=== PATIENT | male | born 1930 | race Caucasian/White ===

== ENCOUNTER 2016-12-11 19:30 | Emergency (ER) | payer MEDICARE, BC ==
--- NOTE | 2016-12-11 20:05 | EDM.PDOC ---
ED HPI GENERAL MEDICAL PROBLEM - General Chief Complaint: Syncope Stated Complaint: SYNCOPE Time Seen by Provider: 12/11/16 19:47 Source of Information: Reports: Patient History Limitations: Reports: No Limitations - History of Present Illness INITIAL COMMENTS - FREE TEXT/NARRATIVE: This patient is a pleasant 86 year old male that presents to the ER. Patient reports that he remembers being out in his garden. He reports he went out to his garden about 3pm today. Patient reports that he remembers being out there down on his knees and hands with a small garden shovel pulling weeds from his garden. He reports that he remembers laying down in the garden being awakened by rain. He reports that he felt like his arms and legs bilateral would not work. He reports crawling to his life alert that was on the ground across the garden. He reports hitting his life alert for help. The patient reports that he does not recall the time from pulling weeds until about now arriving to the ER. The patient has an uncounted time of about 4 hours. The patient denies millard, dizziness, n, v, d, f, soa, abd pain, urinary/bowel changes. The patient does report that about one week ago he fell down about 7 steps. The patient does report tonight right shoulder pain. Patient currently is alert and oriented. His stroke score is 0. 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 Denies: Confusion, Cough, cough w sputum, Diaphoresis, Fever/Chills, Headaches, Loss of Appetite, Malaise, Nausea/ Vomiting, Rash, Seizure, Shortness of Breath, Syncope, Weakness - Related Data Allergies Allergy/AdvReac Type Severity Reaction Status Date / Time No Known Allergies Allergy Verified 12/11/16 19:50 Home Meds: Home Meds Calcium Carb & Citrate/Vit D3 [Citracal + D ER] 1 each PO DAILY 12/11/16 [ History] Cholecalciferol (Vitamin D3) [Vitamin D3] 2,000 unit PO DAILY 12/11/16 [History] Cyanocobalamin (Vitamin B12) [Vitamin B12] 1,000 mcg PO DAILY 12/11/16 [History] Fish Oil/[place]-3 Fatty Acids [Fish Oil] 1 each PO BID 12/11/16 [History] Hydrochlorothiazide 12.5 mg PO DAILY 12/11/16 [History] Lisinopril 20 mg PO DAILY 12/11/16 [History] Metoprolol Tartrate 50 mg PO BID 12/11/16 [History] Multivitamin [Daily Multiple Vitamin] 1 tab PO DAILY 12/11/16 [History] Nitroglycerin 0.4 mg SL ASDIRECTED 12/11/16 [History] Simvastatin [Zocor] 10 mg PO DAILY 12/11/16 [History] ED ROS GENERAL - Review of Systems Review Of Systems: See Below Constitutional: Reports: Weakness (generalized) HEENT: Reports: No Symptoms Respiratory: Reports: No Symptoms Cardiovascular: Reports: Chest Pain, Syncope Endocrine: Reports: No Symptoms GI/Abdominal: Reports: No Symptoms : Reports: No Symptoms Musculoskeletal: Reports: Shoulder Pain (right shoulder) Skin: Reports: Bruising (right shoulder) Neurological: Reports: No Symptoms Psychiatric: Reports: No Symptoms Hematologic/Lymphatic: Reports: No Symptoms Immunologic: Reports: No Symptoms - Physical Exam Exam: See Below Exam Limited By: No Limitations General Appearance: Alert, WD/WN, No Apparent Distress Eye Exam: Bilateral Eye: EOMI, Normal Inspection, PERRL Ears: Normal External Exam, Normal Canal, Hearing Grossly Normal, Normal TMs Nose: Normal Inspection, Normal Mucosa, No Blood Throat/Mouth: Normal Inspection, Normal Lips, Normal Teeth, Normal Gums, Normal Oropharynx, Normal Voice, No Airway Compromise Head Exam: Atraumatic, Normocephalic Neck: Normal Inspection, Supple, Non-Tender, Full Range of Motion Respiratory/Chest: No Respiratory Distress, Lungs Clear, Normal Breath Sounds, No Accessory Muscle Use, Chest Non-Tender. No: Respiratory Distress, Accessory Muscle Use Cardiovascular: Normal Peripheral Pulses, Regular Rate, Rhythm, No Edema, No Gallop, No JVD, No Murmur, No Rub GI/Abdominal: Normal Bowel Sounds, Soft, Non-Tender, No Organomegaly, No Distention, No Abnormal Bruit, No Mass Neuro Exam (Abbreviated): Alert, Oriented, CN II-XII Intact, Normal Cognition, No Motor/Sensory Deficits Back Exam: Normal Inspection, Full Range of Motion. No: CVA Tenderness (L), CVA Tenderness (R), Decreased Range of Motion, Muscle Spasm, Paraspinal Tenderness, Vertebral Tenderness Extremities: Normal Capillary Refill, Other (Right shoulder pain, tenderness anterior/ ecchymosis. Motor function intact. ) Psychiatric: Normal Affect, Normal Mood Skin Exam: Warm, Dry, Normal Color, No Rash, Other (bilateral anterior knee abrasions. ) EKG INTERPRETATION EKG Date: 12/11/16 Time: 19:46 Rate (beats/min): 78 QRS: RBBB ST-T: normal Comparison: change from previous EKG (New RBB.) Course - Vital Signs Last Recorded V/S: Last Vital Signs Temp 97.7 F 12/11/16 21:38 Pulse 76 12/11/16 21:38 Resp 20 12/11/16 21:38 BP 101/64 12/11/16 21:38 Pulse Ox 95 12/11/16 21:38 - Orders/Labs/Meds Orders: Active Orders 24 hr Category Date Time Status Chest 2V [CR] Stat Exams 12/11/16 19:42 Taken Head wo Cont [CT] Stat Exams 12/11/16 19:42 Taken Shoulder Comp Rt [CR] Stat Exams 12/11/16 19:55 Taken Labs: Laboratory Tests 12/11/16 12/11/16 12/11/16 Range/Units 19:55 19:55 19:55 WBC 15.3 H (5.0-10.0) 10^3/uL RBC 4.21 L (4.50-6.00) 10^6/uL Hgb 13.1 L (14.0-18.0) g/dL Hct 38.2 L (40.0-54.0) % MCV 90.7 (82.0-94.0) fL MCH 31.1 (27.0-32.0) pg MCHC 34.3 (33.0-38.0) g/dL RDW Coeff of Matthew 14.0 (11.0-15.0) % Plt Count 175 (150-400) 10^3/uL Neut % (Auto) 85.9 H (35-85) % Lymph % (Auto) 6.5 L (10-55) % [place] % (Auto) 6.8 (0-16) % Eos % (Auto) 0.5 (0-5) % Baso % (Auto) 0.3 (0-3) % Neut # (Auto) 13.12 H (1.80-7.00) 10^3/uL Lymph # (Auto) 0.99 L (1.00-4.80) 10^3/uL [place] # (Auto) 1.04 H (0.00-0.80) 10^3/uL Eos # (Auto) 0.08 (0.00-0.45) 10^3/uL Baso # (Auto) 0.04 10^3/uL PT 10.7 (9.7-12.3) SEC INR 0.99 (0.92-1.18) APTT 22.8 L (24.5-30.9) SEC Sodium 144 (136-145) mEq/L Potassium 3.6 (3.5-5.0) mEq/L Chloride 105 (98-106) mEq/L Carbon Dioxide 26 (21-32) mmol/L BUN 29 H (7-18) mg/dL Creatinine 1.5 H (0.7-1.3) mg/dL Est Cr Clr Drug Dosing 33.05 mL/min Estimated GFR (MDRD) 44 L (>=60) mL/min Glucose 89 (75-99) mg/dL Calcium 8.6 (8.4-10.1) mg/dL Lactate Dehydrogenase 242 H (100-190) U/L Creatine Kinase 1013 H (35-232) U/L Troponin I 1.324 H (0.00-0.06) ng/mL Urine Color (YELLOW) Urine Appearance (CLEAR) Urine pH (4.5-8.0) Ur Specific Traer (1.003-1.020) Urine Protein (NEGATIVE) mg/dL Urine Glucose (UA) (NEGATIVE) mg/dL Urine Ketones (NEGATIVE) mg/dL Urine Occult Blood (NEGATIVE) Urine Nitrite (NEGATIVE) Urine Bilirubin (NEGATIVE) Urine Urobilinogen (0.2-1.0) EU/dL Ur Leukocyte Esterase (NEGATIVE) Urine RBC (0-5) /HPF Urine WBC (0-5) /HPF Ur Epithelial Cells (NOT SEEN) /HPF Hyaline Casts (NOT SEEN) /LPF Urine Mucus (NOT SEEN) /HPF 12/11/16 Range/Units 20:31 WBC (5.0-10.0) 10^3/uL RBC (4.50-6.00) 10^6/uL Hgb (14.0-18.0) g/dL Hct (40.0-54.0) % MCV (82.0-94.0) fL MCH (27.0-32.0) pg MCHC (33.0-38.0) g/dL RDW Coeff of Matthew (11.0-15.0) % Plt Count (150-400) 10^3/uL Neut % (Auto) (35-85) % Lymph % (Auto) (10-55) % [place] % (Auto) (0-16) % Eos % (Auto) (0-5) % Baso % (Auto) (0-3) % Neut # (Auto) (1.80-7.00) 10^3/uL Lymph # (Auto) (1.00-4.80) 10^3/uL [place] # (Auto) (0.00-0.80) 10^3/uL Eos # (Auto) (0.00-0.45) 10^3/uL Baso # (Auto) 10^3/uL PT (9.7-12.3) SEC INR (0.92-1.18) APTT (24.5-30.9) SEC Sodium (136-145) mEq/L Potassium (3.5-5.0) mEq/L Chloride (98-106) mEq/L Carbon Dioxide (21-32) mmol/L BUN (7-18) mg/dL Creatinine (0.7-1.3) mg/dL Est Cr Clr Drug Dosing mL/min Estimated GFR (MDRD) (>=60) mL/min Glucose (75-99) mg/dL Calcium (8.4-10.1) mg/dL Lactate Dehydrogenase (100-190) U/L Creatine Kinase (35-232) U/L Troponin I (0.00-0.06) ng/mL Urine Color Yellow (YELLOW) Urine Appearance Clear (CLEAR) Urine pH 5.5 (4.5-8.0) Ur Specific Traer 1.010 (1.003-1.020) Urine Protein Negative (NEGATIVE) mg/dL Urine Glucose (UA) Negative (NEGATIVE) mg/dL Urine Ketones Negative (NEGATIVE) mg/dL Urine Occult Blood Small H (NEGATIVE) Urine Nitrite Negative (NEGATIVE) Urine Bilirubin Negative (NEGATIVE) Urine Urobilinogen 0.2 (0.2-1.0) EU/dL Ur Leukocyte Esterase Negative (NEGATIVE) Urine RBC Not seen (0-5) /HPF Urine WBC 0-5 (0-5) /HPF Ur Epithelial Cells Few H (NOT SEEN) /HPF Hyaline Casts Few H (NOT SEEN) /LPF Urine Mucus Few H (NOT SEEN) /HPF Meds: Medications Discontinued Medications Generic Name Dose Route Start Last Admin Trade Name Priya PRN Reason Stop Dose Admin Aspirin 324 mg 12/11/16 20:42 12/11/16 21:16 Aspirin PO 12/11/16 20:43 324 mg ONETIME ONE Administration Heparin Sodium (Porcine) 4,963 units 12/11/16 21:06 12/11/16 21:17 Heparin Sodium IVPUSH 12/11/16 21:07 4,963 units .BOLUS ONE Administration Heparin Sodium/Dextrose 25,000 units in 500 mls @ 6.604 mls/hr 12/11/16 21:15 12/11/16 21:27 Heparin 25,000 Units In D5w 500 Ml IV 4 units/kg/hr TITRATE GUSTAVO 6.604 mls/hr Protocol Administration 4 UNITS/KG/HR - Radiology Interpretation Free Text/Narrative:: CXR; no infiltrates, no edema, no cardiac enlargement. Head CT: Discussed with radiologist: no acute findings. CT Results Date: 12/11/16 CT Results Time: 20:36 - Re-Assessments/Exams Free Text/Narrative Re-Assessment/Exam: 12/11/16 21:15 This patient currently has no chest pain. Pain is not manipulated on exam. Patient now states no pain in chest. 12/11/16 21:24 This patient does have mildly elevated CR and BUN, but his troponin is elevated , I believe due to cardiac injury or possible PE. I have had physician at [facility] review patient ekg. I also discussed patient case with Dr. Villagomez at [facility]. They both agree patient should be started on heparin and transferred. At this time will not CT patient chest, will just treat with heparin and transfer. Hospitalist will evaluate and determine if CT is needed there in [place]. 12/11/16 21:39 Heperin given at request of hospitalist [facility], not [facility]. Departure - Departure Time of Disposition: 21:23 Disposition: DC/Tfer to Acute Hospital 02 Condition: fair Clinical Impression: Myocardial infarction Qualifiers: Myocardial infarction ST status: non-ST elevation myocardial infarction Qualified Code(s): I21.4 - Non-ST elevation (NSTEMI) myocardial infarction - Discharge Information Referrals: Scott Mandujano MD [Primary Care Provider] - Forms: ED Department Discharge - My Orders Last 24 Hours: My Active Orders 12/11/16 19:42 Chest 2V [CR] Stat Head wo Cont [CT] Stat 12/11/16 19:55 Shoulder Comp Rt [CR] Stat - Assessment/Plan Last 24 Hours: My Active Orders 12/11/16 19:42 Chest 2V [CR] Stat Head wo Cont [CT] Stat 12/11/16 19:55 Shoulder Comp Rt [CR] Stat Plan: PLEASE USE RN NOTE FOR PFSH. This patient is being transferred to [facility]. The patient is being transferred due to NONSTEMI [place]. He is being transferred via [facility] [place]. The risks of the transfer are mvc, , bleeding to , cardiac arrest, worsening of condition, dyspnea. The benefits of the transfer are higher level of care, technical training specialist, cardiac intervention. 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 The benefits of staying in [place] are close to home.
[2016-12-11] MEDS ORDERED: Aspirin 81 MG Tab.Chew PO ONE (20:42)
[2016-12-11] MEDS ORDERED: Heparin Sodium 10,000 Units/1 ML MDV IVPUSH ONE (21:06)
[2016-12-11] MEDS ORDERED: Heparin Sodium/D5W 25,000 UNITS/500 ML BAG IV SCH (21:15)
[2016-12-11 21:39] VITALS: BP 101/64
== END 2016-12-11 22:15 ==
LOC: CC.ED 19:30
DX: I21.4 Non-ST elevation (NSTEMI) myocardial infarction (principal); S40.011A Contusion of right shoulder, initial encounter; S80.212A Abrasion, left knee, initial encounter; S80.211A Abrasion, right knee, initial encounter; W19.XXXA Unspecified fall, initial encounter; Z79.899 Other long term (current) drug therapy; Y92.096 Garden or yard of other non-institutional residence as the place of occurrence of the external cause
CPT/HCPCS: 36415; 70450; 71020; 73030; 80048; 81001; 82550; 83615; 84484; 85025; 85610; 85730; 93005; 93010; 96365; 96376; 99285; A9270; J1644